=== PATIENT | male | born 1950 | race Two or more races ===

== ENCOUNTER 2023-01-11 12:36 | Inpatient (IN) | payer OTHER, MEDICARE ==
[~2023-01-11] VITALS: Ht 185.4 cm; Wt 75.0 kg
[2023-01-11 15:35] LABS: INR 1.17 (0.9-1.15); Partial Thromboplastin Time 25.9 SEC (24.5-34.5); Prothrombin Time 12.2 sec (9.3-11.8)
[2023-01-11 15:50] LABS: Alanine Aminotransferase 30 U/L (7-40); Albumin 2.9 g/dL (3.2-4.8); Alkaline Phosphatase 75 U/L (46-116); Anion Gap 9 (5-15); Aspartate Aminotransferase 36 U/L (13-40); BUN/Creatinine Ratio 30.8 (10.0-20.0); Blood Urea Nitrogen 36 mg/dL (9-23); Calcium 8.3 mg/dL (8.5-10.1); Carbon Dioxide 22 mmol/L (20-30); Chloride 116 mmol/L (98-107); Glucose 97 mg/dL (74-106); Sodium 147 mmol/L (136-145)
[2023-01-11 15:51] LABS: Bilirubin, Total 0.7 mg/dL (0.2-1.0); Total Protein 6.1 g/dL (5.7-8.2)
[2023-01-11] MEDS ORDERED: ENOXAPARIN SOD 80 MG/0.8ML SYRINGE SC ONE (16:30)
[2023-01-11] MEDS ORDERED: FUROSEMIDE 40 MG/4 ML VIAL IV ONE (16:30)
[2023-01-11 20:56] LABS: Basophils # (auto) 0 10 ^3/uL (0-0.2); Basophils % (auto) 0.7 % (0.0-2.0); Eosinophils # (auto) 0 10 ^3/uL (0-0.8); Hemoglobin 14.5 g/dL (13.5-17.5); Lymphocytes # (auto) 0.6 10 ^3/uL (0.4-5.4); Lymphocytes % (auto) 9.4 % (10.0-50.0); Monocytes # (auto) 0.2 10 ^3/uL (0-1.3); Neutrophils # (auto) 5.7 10 ^3/uL (1.6-8.6); Nucleated Red Blood Cells % 0.1 %
[2023-01-11 20:58] LABS: Eosinophils % (auto) 0.5 % (0.0-7.0); Hematocrit 46.6 % (41.0-53.0); Mean Corpuscular Hemoglobin 28.4 pg (28.0-32.0); Mean Corpuscular Hgb Conc. 31.1 g/dL (32.0-36.0); Mean Corpuscular Volume 91.4 fL (80.0-100.0); Monocytes % (auto) 3.7 % (0.0-12.0); Neutrophils % (auto) 85.7 % (37.0-80.0); Red Cell Distribution Width 17.8 % (11.8-14.3); White Blood Cell 6.7 10^3/uL (4.4-10.8)
[2023-01-11] MEDS ORDERED: DOCUSATE SOD 100 MG CAP PO PRN (21:30)
[2023-01-11] MEDS ORDERED: DEXTROSE (50%) 50ML SYRG IV PRN (21:30)
[2023-01-11] MEDS ORDERED: HYDROcodone-ACET 5/325MG TAB PO PRN (21:30)
[2023-01-11] MEDS ORDERED: ACETAMINOPHEN 325 MG TAB PO PRN (21:30)
[2023-01-11] MEDS ORDERED: hydrALAZINE HCL 20 MG/ML VL IV PRN (21:30)
[2023-01-11] MEDS ORDERED: ONDANSETRON HCL 4 MG/2 ML VIAL IV PRN (21:30)
[2023-01-11] MEDS ORDERED: NITROGLYCERIN 0.4 MG SL TAB SL PRN (22:15)
[2023-01-11] MEDS ORDERED: MORPHINE SULFATE INJ 2 MG/ml SYRG IV PRN (22:15)
[2023-01-11] MEDS: ATORVASTATIN 20 MG TAB PO SCH (22:17)
[2023-01-11] MEDS: SODIUM CHLOR 0.9% PF (SALINE LOCK) 10ML VIAL/SYR IV SCH (22:17)
[2023-01-11] MEDS: CARVEDILOL 3.125 MG TAB PO SCH (22:17)
[2023-01-12] MEDS: ACCU-CHEK COMFORT CURVE STRIP VI SCH ×5 (00:48→22:42)
[2023-01-12] MEDS: InsuLIN REG 1unit/0.01ml Soln (100units/ml) SC SCH ×5 (00:54→22:47)
[2023-01-12 01:48] VITALS: PULSE 70; RESP 16; O2SAT 98
[2023-01-12 05:12] LABS: Urine Bacteria FEW /hpf (None Seen); Urine Blood 1+ /uL (Negative); Urine Clarity HAZY (Clear); Urine Color Colorless (Yellow); Urine Mucus FEW (None Seen); Urine Protein, UAD 1+ (Negative); Urine Urobilinogen Normal (Negative); Urine WBC 16 /hpf (0 - 3)
[2023-01-12] MEDS: SODIUM CHLOR 0.9% PF (SALINE LOCK) 10ML VIAL/SYR IV SCH ×3 (05:27→22:02)
[2023-01-12 05:33] LABS: Basophils # (auto) 0.1 10 ^3/uL (0-0.2); Basophils % (auto) 0.8 % (0.0-2.0); Eosinophils # (auto) 0 10 ^3/uL (0-0.8); Eosinophils % (auto) 0.5 % (0.0-7.0); Hematocrit 41.6 % (41.0-53.0); Hemoglobin 13.2 g/dL (13.5-17.5); Lymphocytes # (auto) 0.7 10 ^3/uL (0.4-5.4); Lymphocytes % (auto) 10.8 % (10.0-50.0); Mean Corpuscular Hemoglobin 28.6 pg (28.0-32.0); Mean Corpuscular Hgb Conc. 31.8 g/dL (32.0-36.0); Mean Corpuscular Volume 89.9 fL (80.0-100.0); Monocytes # (auto) 0.3 10 ^3/uL (0-1.3); Monocytes % (auto) 4.8 % (0.0-12.0); Neutrophils # (auto) 5.1 10 ^3/uL (1.6-8.6); Neutrophils % (auto) 83.1 % (37.0-80.0); Nucleated Red Blood Cells % 0.2 %; Red Blood Cells 4.62 10^6/uL (4.5-5.90); Red Cell Distribution Width 16.4 % (11.8-14.3); White Blood Cell 6.1 10^3/uL (4.4-10.8)
[2023-01-12 05:36] LABS: Alanine Aminotransferase 21 U/L (7-40); Albumin 2.7 g/dL (3.2-4.8); Alkaline Phosphatase 72 U/L (46-116); Anion Gap 6 (5-15); Aspartate Aminotransferase 34 U/L (13-40); BUN/Creatinine Ratio 12.6 (10.0-20.0); Blood Urea Nitrogen 16 mg/dL (9-23); Calcium 8.2 mg/dL (8.7-10.4); Carbon Dioxide 24 mmol/L (20-30); Chloride 115 mmol/L (98-107); Glucose 84 mg/dL (74-106); Potassium 3.7 mmol/L (3.5-5.1); Sodium 145 mmol/L (136-145)
[2023-01-12 05:37] LABS: Bilirubin, Total 0.6 mg/dL (0.2-1.0)
[2023-01-12 08:00] VITALS: PULSE 76; RESP 16; O2SAT 93
[2023-01-12] MEDS ORDERED: FUROSEMIDE 40 MG/4 ML VIAL IV SCH (10:00)
[2023-01-12] MEDS: ASPirin 81 mg TAB PO SCH (11:08)
[2023-01-12] MEDS: ENOXAPARIN SOD 80 MG/0.8ML SYRINGE SC SCH ×2 (11:09→22:49)
[2023-01-12] MEDS: CARVEDILOL 3.125 MG TAB PO SCH ×2 (11:09→22:49)
[2023-01-12] MEDS ORDERED: cefTRIAXone 1GM/50ML D5W 50 ML IV ONE (13:30)
[2023-01-12] MEDS: SPIRONOLACTONE 25 MG TAB PO SCH (13:46)
[2023-01-12] MEDS: DOBUTamine 1000MCG/ML 250 ML IV SCH ×2 (13:57→22:22)
[2023-01-12 19:30] VITALS: PULSE 78; RESP 20; O2SAT 100
[2023-01-12] MEDS: FUROSEMIDE 20 MG/2 ML VIAL IV SCH (21:17)
[2023-01-12] MEDS: ATORVASTATIN 20 MG TAB PO SCH (22:48)
[2023-01-12] MEDS: SACUBITRIL-VALSARTAN 24mg/26mg TAB PO SCH (22:50)
[2023-01-13] MEDS ORDERED: LORazepam 2MG/ML-1ML VIAL ONE (04:22)
[2023-01-13] MEDS: LORazepam 2MG/ML-1ML VIAL IV PRN ×2 (04:26→04:37)
[2023-01-13] MEDS: SODIUM CHLOR 0.9% PF (SALINE LOCK) 10ML VIAL/SYR IV SCH ×3 (05:55→22:58)
[2023-01-13] MEDS: ACCU-CHEK COMFORT CURVE STRIP VI SCH ×4 (06:40→23:17)
[2023-01-13] MEDS: InsuLIN REG 1unit/0.01ml Soln (100units/ml) SC SCH ×4 (06:41→23:17)
[2023-01-13] MEDS: FUROSEMIDE 20 MG/2 ML VIAL IV SCH ×2 (06:46→18:13)
[2023-01-13] MEDS: EMPAGLIFLOZIN 10 MG TAB PO SCH (07:00)
[2023-01-13 07:57] VITALS: PULSE 67; RESP 14; O2SAT 98
[2023-01-13] MEDS: cefTRIAXone 1GM/50ML D5W 50 ML IV SCH (09:00)
[2023-01-13] MEDS: DOBUTamine 1000MCG/ML 250 ML IV SCH ×2 (09:29→20:36)
[2023-01-13] MEDS: CARVEDILOL 3.125 MG TAB PO SCH ×2 (10:00→22:55)
[2023-01-13] MEDS: SPIRONOLACTONE 25 MG TAB PO SCH (10:00)
[2023-01-13] MEDS: SACUBITRIL-VALSARTAN 24mg/26mg TAB PO SCH ×3 (10:00→22:47)
[2023-01-13] MEDS: ASPirin 81 mg TAB PO SCH (10:00)
[2023-01-13] MEDS: ENOXAPARIN SOD 80 MG/0.8ML SYRINGE SC SCH ×2 (10:19→22:48)
[2023-01-13 19:30] VITALS: PULSE 75; RESP 21; O2SAT 99
[2023-01-13] MEDS: ATORVASTATIN 20 MG TAB PO SCH (22:48)
[2023-01-14] MEDS: DOBUTamine 1000MCG/ML 250 ML IV SCH ×2 (03:37→16:07)
[2023-01-14] MEDS: FUROSEMIDE 20 MG/2 ML VIAL IV SCH ×2 (06:33→18:02)
[2023-01-14] MEDS: SODIUM CHLOR 0.9% PF (SALINE LOCK) 10ML VIAL/SYR IV SCH ×3 (06:34→22:00)
[2023-01-14] MEDS: InsuLIN REG 1unit/0.01ml Soln (100units/ml) SC SCH ×4 (07:00→21:45)
[2023-01-14] MEDS: EMPAGLIFLOZIN 10 MG TAB PO SCH (07:03)
[2023-01-14] MEDS: ACCU-CHEK COMFORT CURVE STRIP VI SCH ×4 (07:07→21:45)
[2023-01-14 08:15] VITALS: PULSE 61; RESP 19; O2SAT 100
[2023-01-14] MEDS: cefTRIAXone 1GM/50ML D5W 50 ML IV SCH (10:07)
[2023-01-14] MEDS: ENOXAPARIN SOD 80 MG/0.8ML SYRINGE SC SCH (11:55)
[2023-01-14] MEDS: CARVEDILOL 3.125 MG TAB PO SCH (11:56)
[2023-01-14] MEDS: SACUBITRIL-VALSARTAN 24mg/26mg TAB PO SCH ×2 (11:56→22:46)
[2023-01-14] MEDS: ASPirin 81 mg TAB PO SCH (11:56)
[2023-01-14] MEDS: SPIRONOLACTONE 25 MG TAB PO SCH ×2 (11:57→22:46)
[2023-01-14 18:43] LABS: COVID19 ANTIGEN SOFIA FIA NEGATIVE (NEGATIVE)
[2023-01-14 19:25] VITALS: PULSE 74; RESP 16; O2SAT 94
[2023-01-14 19:40] VITALS: PULSE 78; RESP 78; O2SAT 98
[2023-01-14] MEDS ORDERED: ATORVASTATIN 20 MG TAB PO SCH (22:00)
[2023-01-14 22:25] LABS: Triglycerides 75 mg/dL (< 150)
[2023-01-14 22:26] LABS: LDL Cholesterol 50 mg/dL (< 100)
[2023-01-14 22:27] LABS: Cholesterol 100 mg/dL (< 200); HDL Cholesterol 37 mg/dL (40-59)
[2023-01-14] MEDS: CARVEDILOL 12.5 MG TAB PO SCH (22:46)
[2023-01-14] MEDS: APIXABAN 5 MG TAB PO SCH (22:48)
[2023-01-15] MEDS: DOBUTamine 1000MCG/ML 250 ML IV SCH (04:28)
[2023-01-15] MEDS: SODIUM CHLOR 0.9% PF (SALINE LOCK) 10ML VIAL/SYR IV SCH ×2 (06:02→14:14)
[2023-01-15] MEDS: EMPAGLIFLOZIN 10 MG TAB PO SCH (06:54)
[2023-01-15] MEDS: InsuLIN REG 1unit/0.01ml Soln (100units/ml) SC SCH ×2 (06:54→11:30)
[2023-01-15] MEDS: ACCU-CHEK COMFORT CURVE STRIP VI SCH ×2 (06:54→11:33)
[2023-01-15] MEDS: FUROSEMIDE 20 MG/2 ML VIAL IV SCH (06:57)
[2023-01-15 07:35] VITALS: PULSE 67; RESP 29; O2SAT 99
[2023-01-15 07:53] VITALS: BP 168/84; RESP 13; O2SAT 98
[2023-01-15 09:42] LABS: Basophils # (auto) 0 10 ^3/uL (0-0.2); Basophils % (auto) 0.6 % (0.0-2.0); Eosinophils # (auto) 0.1 10 ^3/uL (0-0.8); Eosinophils % (auto) 0.9 % (0.0-7.0); Lymphocytes # (auto) 0.7 10 ^3/uL (0.4-5.4); Monocytes # (auto) 0.4 10 ^3/uL (0-1.3); Monocytes % (auto) 6.4 % (0.0-12.0); Nucleated Red Blood Cells % 0.1 %
[2023-01-15 09:44] LABS: Hematocrit 40.3 % (41.0-53.0); Hemoglobin 12.5 g/dL (13.5-17.5); Lymphocytes % (auto) 10.5 % (10.0-50.0); Mean Corpuscular Hemoglobin 28.4 pg (28.0-32.0); Mean Corpuscular Volume 91.6 fL (80.0-100.0); Neutrophils # (auto) 5.3 10 ^3/uL (1.6-8.6); Neutrophils % (auto) 81.6 % (37.0-80.0); Red Cell Distribution Width 17.2 % (11.8-14.3); White Blood Cell 6.5 10^3/uL (4.4-10.8)
[2023-01-15] MEDS ORDERED: LISINOPRIL 20 MG TAB PO SCH (10:00)
[2023-01-15] MEDS ORDERED: NIFEdipine ER 30 MG TAB PO SCH (10:00)
[2023-01-15] MEDS ORDERED: PANTOPRAZOLE 40 MG TAB PO SCH (10:00)
[2023-01-15] MEDS ORDERED: CHOLECALCIFEROL (VITD3) 2,000 UNIT CAP/TAB PO SCH (10:00)
[2023-01-15 10:19] LABS: Alanine Aminotransferase 28 U/L (7-40); Albumin 2.6 g/dL (3.2-4.8); Alkaline Phosphatase 62 U/L (46-116); Anion Gap 4 (5-15); Aspartate Aminotransferase 30 U/L (13-40); BUN/Creatinine Ratio 14.4 (10.0-20.0); Bilirubin, Total 0.9 mg/dL (0.2-1.0); Blood Urea Nitrogen 14 mg/dL (9-23); Calcium 8.2 mg/dL (8.5-10.1); Carbon Dioxide 29 mmol/L (20-30); Chloride 106 mmol/L (98-107); Glucose 91 mg/dL (74-106); Potassium 3.8 mmol/L (3.5-5.1); Sodium 139 mmol/L (136-145)
[2023-01-15 10:20] LABS: Total Protein 5.5 g/dL (5.7-8.2)
[2023-01-15] MEDS: SACUBITRIL-VALSARTAN 24mg/26mg TAB PO SCH (11:11)
[2023-01-15] MEDS: ASPirin 81 mg TAB PO SCH (11:11)
[2023-01-15] MEDS: cefTRIAXone 1GM/50ML D5W 50 ML IV SCH (11:11)
[2023-01-15] MEDS: APIXABAN 5 MG TAB PO SCH (11:11)
[2023-01-15] MEDS: CARVEDILOL 12.5 MG TAB PO SCH (11:12)
[2023-01-15] MEDS: SPIRONOLACTONE 25 MG TAB PO SCH (11:14)
[2023-01-15 16:00] VITALS: PULSE 66
== END 2023-01-15 18:50 | DRG 280 ==
LOC: ER 12:56 → TELE 22:13
PROVIDERS: ADMIT Internal Medicine; ATTEND Family Medicine
DX: I11.0 Hypertensive heart disease with heart failure (principal); I21.4 Non-ST elevation (NSTEMI) myocardial infarction; I50.23 Acute on chronic systolic (congestive) heart failure; J96.01 Acute respiratory failure with hypoxia; N39.0 Urinary tract infection, site not specified; I82.622 Acute embolism and thrombosis of deep veins of left upper extremity; I48.91 Unspecified atrial fibrillation; E86.0 Dehydration; Z20.822 Contact with and (suspected) exposure to COVID-19; E88.09 Other disorders of plasma-protein metabolism, not elsewhere classified; I42.0 Dilated cardiomyopathy; E11.65 Type 2 diabetes mellitus with hyperglycemia; F03.B0 Unspecified dementia, moderate, without behavioral disturbance, psychotic disturbance, mood disturbance, and anxiety; I95.9 Hypotension, unspecified; I27.20 Pulmonary hypertension, unspecified; I34.0 Nonrheumatic mitral (valve) insufficiency; Z86.73 Personal history of transient ischemic attack (TIA), and cerebral infarction without residual deficits; I25.2 Old myocardial infarction; Z95.810 Presence of automatic (implantable) cardiac defibrillator
CPT/HCPCS: 36415; 71045; 80053; 80061; 81001; 82962; 83036; 83735; 83880; 84443; 84484; 85025; 85610; 85730; 87426; 93005; 93306; 93970; 93971; 96372; 96374; 96375; 97110; 97163; 97530; 99291; G0378; J0696